=== PATIENT | male | born 1940 | race Caucasian/White ===

== ENCOUNTER 2021-10-16 12:37 | Outpatient (RCR) | payer MEDICARE, SELFPAY | END 2021-11-13 10:45 | disposition home or self-care (01) | LOC: HO.WCC 12:37 | PROVIDERS: PCP Internal Medicine; Visit Provider Physician Assistant | DX: E11.622 Type 2 diabetes mellitus with other skin ulcer (principal); I87.311 Chronic venous hypertension (idiopathic) with ulcer of right lower extremity; L97.212 Non-pressure chronic ulcer of right calf with fat layer exposed; I87.302 Chronic venous hypertension (idiopathic) without complications of left lower extremity; E11.40 Type 2 diabetes mellitus with diabetic neuropathy, unspecified; Z87.891 Personal history of nicotine dependence | CPT/HCPCS: 11042; 11045; 99212 ==

== ENCOUNTER 2022-03-05 12:34 | Outpatient (RCR) | payer MEDICARE, SELFPAY | END 2022-03-18 14:06 | disposition home or self-care (01) | LOC: HO.WCC 12:34 | PROVIDERS: Visit Provider Physician Assistant | DX: Z09 Encounter for follow-up examination after completed treatment for conditions other than malignant neoplasm (principal); L30.9 Dermatitis, unspecified; R60.0 Localized edema; I87.2 Venous insufficiency (chronic) (peripheral); E11.40 Type 2 diabetes mellitus with diabetic neuropathy, unspecified; I10 Essential (primary) hypertension; I25.2 Old myocardial infarction; Z87.891 Personal history of nicotine dependence; Z87.2 Personal history of diseases of the skin and subcutaneous tissue | CPT/HCPCS: 99213 ==

== ENCOUNTER 2024-06-12 10:00 | Outpatient (RCR) | payer MEDICARE, SELFPAY ==
--- NOTE | ~2024-06-12 | XR_ITS ---
EXAMINATION: XR FOOT, LEFT CLINICAL INFORMATION: Second toe medial joint [wound medially COMPARISON: None available. TECHNIQUE: AP, lateral, and oblique views of the left foot. FINDINGS: There is soft tissue swelling in the second toe more prominent at the middle phalanx and proximal phalanx with small osseous fragment seen medially, adjacent to the distal metadiaphysis of proximal phalanx. There is hallux valgus deformity. There is pes planus deformity and calcaneal spurring. There is soft tissue swelling seen dorsally. XR/XR foot LT min 3V IMPRESSION: Soft tissue swelling is small osseous fragment seen at the distal metadiaphysis of second proximal phalanx. Correlate clinically. Electronically signed by: Jewel Gaines MD 04/05/2024 04:18 PM EST [facility]
== END 2024-07-16 13:51 | disposition home or self-care (01) ==
LOC: HO.WCC 10:00
PROVIDERS: PCP Internal Medicine; Visit Provider Surgery
DX: E11.621 Type 2 diabetes mellitus with foot ulcer (principal); L97.522 Non-pressure chronic ulcer of other part of left foot with fat layer exposed
CPT/HCPCS: 11042; 73630; 99212

== ENCOUNTER 2024-12-31 15:06 | Outpatient (AMB) | payer MEDICARE, SELFPAY ==
--- NOTE | 2024-12-31 15:24 | AM.OFFWIN_ITS ---
Intake Vital Signs 3 12/31/24 15:25 Height 5 ft 6 in Weight 185 lb BMI 29.9 BP 108/56 L Blood Pressure Location Lt brachial Position Sitting Pulse 58 Pulse Source Pulse Oximeter Temp 98.3 F Temp Source Oral Pulse Oximetry (%) 96 Oxygen Delivery Method Room Air Intake Visit Reasons: EP bite Intake Note: presents with open wound on right arm from a dog bite sustained yesterday Allergies acetaminophen (From Tylenol-Codeine) Allergy (Mild, Verified 12/31/24 15:29) Hives codeine (From Tylenol-Codeine) Allergy (Mild, Verified 12/31/24 15:29) Hives Do you need a note to return to daycare/school/sports/work: No HPI HPI Comments 2 History of Present Illness0 Details 84 y/o Male patient who presents to the walk in clinic with c/o Dog Bite right Forearm. He was playing with his Dog yesterday when the Dog Bit him - he reached over to take the Dog's Toy. The Dog Belongs to him and fully vaccinated. Pt needs Tdap. [facility] Medical History (Updated 12/31/24 @ 16:27 by Earline Almaraz NP) Dog bite of arm Review of Systems Const All systems reviewed & are unremarkable except as noted in HPI and below Physical Exam Vital Signs: Last Vital Signs Temp 98.3 F 12/31/24 15:25 Pulse 58 12/31/24 15:25 BP 108/56 L 12/31/24 15:25 Pulse Ox 96 12/31/24 15:25 Oxygen Delivery Method Room Air 12/31/24 15:25 BMI result Body Mass Index 29.9 Const General: no acute distress Nutritional Appearance: well nourished Orientation/consciousness: patient oriented x3 Resp Effort & Inspection: normal respiratory effort Cardio Heart sounds: S1 normal heart sound present and S2 normal heart sound present Neuro General: patient oriented x3, gait normal and moves all extremities Extrem Right upper extremity: elbow/forearm Details: tenderness Location: proximal forearm, normal ROM and laceration; no swelling, no unusual warmth and no crepitus Elbow/forearm/wrist images: 2 1. Small superficial Skin Tear, not bleeding. Small visible bite joel. Psych Speech and movement: Normal speech and movement present Assessment & Plan Assessment & Plan (1) Dog bite of arm: Code(s): S41.159A - Open bite of unspecified upper arm, initial encounter; W54.0XXA - Bitten by dog, initial encounter Qualifiers: Encounter type: initial encounter Laterality: right Qualified Code(s): S41.151A - Open bite of right upper arm, initial encounter; W54.0XXA - Bitten by dog, initial encounter Plan: We currently do not Have T-dap in office. Advised Patient to go to [facility] or [facility] for the Vaccine. Clean the wound and applied dressings. Xeroform gauze and Wrapped with Kerlix roll. Ordered Augementin for 7 days. Medications: New 2 amoxicillin-pot clavulanate 875-125 mg 1 tab PO BID 14 tabs 0RF 7 days S41.151A - Open bite of right upper arm, initial encounter, W54.0XXA - Bitten by dog, initial encounter Coding Level of Care Code Est Pt Level 4 (12032) Diagnoses Dog bite of right upper extremity, initial encounter S41.151A; W54.0XXA Encounter type: initial encounter Laterality: right Time Spent (min) 20
[2024-12-31 15:25] VITALS: BP 108/56; PULSE 58; TEMP 36.8; O2SAT 96; BMI 29.9
--- OUTSIDE RECORDS SUMMARY | 2024-12-31 15:25 | XMS_ITS | Encounter Summary ---
Author Organization [facility] Address [address] [place] [address] Phone Care Team Providers Care Manager Database Name Role Phone Omar Encarnacion MD Primary Care Provider [phone] Reason for Referral * MRI/CAT Scan - Closed Specialty Diagnoses / Procedures Referred By Contac t Referred To Contact Radiology Diagnoses Low back pain, unspecified back pain laterality, unspecified chronicity, unspecified whether sciatica present Procedures MRI Lumbar Spine Rohan Liriano DO Phone: tel: fax: [email or web address] Referral ID Status Reason Start Date Expiration Date Visits Re quested Visits Authorized [id number] Closed 02/25/2021 02/25/2022 1 1 Encounter Details Date Type Department Care Team (Latest Contact Info) Description 02/25/2021 Transcribe Orders Virtual Department [address] [place] [address] Rohan Liriano DO [address] [place] [address] [email or web address] Low back pain, unspecified back pain laterality, unspecified chronicity, unspecified whether sciatica present (Primary Dx) Social History Tobacco Use Types Packs/Day Years Used Date Smoking Tobacco: Former Cigarettes Q uit: 08/15/1982 Smokeless Tobacco: Never Sex and Gender Information Value Date Recorded Sex Assigned at Not on file Legal Sex Male 10:38 PM EDT Gender Identity Not on file Sexual Orientation Not on file documented as of this encounter Plan of Treatment Upcoming Encounters Date Type Department Care Team (Late st Contact Info) Description 03/01/2025 1:40 PM EDT Office Visit [facility] [address] [place] [address] [address] Floor, [address] [place] [address] Ad Harvey MD [address] [facility], [address] [place] [address] [email or web address] documented as of this encounter Results * MRI LUMBAR SPINE (BONE) WITH AND WITHOUT CONTRAST (03/14/2021 3:31 PM EDT) Anatomical Region Laterality Modality L-spine Magnetic Resonan ce 03/15/2021 1:18 PM EDT Impressions 03/15/2021 4:07 PM EDT 1.Severe degenerative changes as described above and summarized below. 2.At L2/L3, there is moderate central canal stenosis and moderate narrowing of the bilateral lateral recesses with encroachment upon the descending L3 nerve roots. 3.At L3/L4, there is severe central canal stenosis and moderate to severe right lateral recess stenosis with possible impingement of the descending right L4 nerve roots, encroachment upon the left L4 nerve roots, and moderate left neural foraminal stenosis. 4.At L4/L5, there is moderate to severe central canal stenosis and severe right lateral recess stenosis with impingement of the descending right L5 nerve roots. 5.At L5/S1, there is a left paracentral disc herniation resulting in severe narrowing of the left lateral recess with impingement of the descending left S1 nerve roots. Narrative 03/15/2021 4:07 PM EDT MRI LUMBAR SPINE (BONE) WITH AND WITHOUT CONTRAST TECHNIQUE: Multi-sequence, multi-planar MRI of the lumbar spine was performed without and with intravenous contrast. COMPARISON: None FINDINGS: Vertebrae: There is mild accentuation of normal lumbar lordosis. There is mild anterolisthesis of L4 on L5 and mild stepwise retrolisthesis of L3 on L4 and L2 on L3. There is no evidence of vertebral body height loss to suggest a compression fracture. There is moderate to severe loss of intervertebral disc height at L2/L3 and L3/L4 levels. At these levels, there is STIR hyperintensity in the adjacent endplates likely representing bone marrow edema. Otherwise, there is no evidence of a marrow replacing process, a lytic lesion, or a blastic lesion. Conus: The conus terminates at the L1/L2 level and is unremarkable. Contrast: No abnormal enhancement. Soft Tissue: No paraspinal edema, mass or fluid collection. Findings by level: T12-L1: Normal. Normal disc height and contour. Normal facet joints. No listhesis. No bone marrow edema. No stenosis or nerve impingement. L1-L2: Normal. Normal disc height and contour. Normal facet joints. No listhesis. No bone marrow edema. No stenosis or nerve impingement. L2-L3: There is a broad-based posterior disc bulge with a superimposed central protrusion. There is associated epidural lipomatosis and ligamentum flavum hypertrophy. These changes are resulting in moderate central canal stenosis and crowding of the nerve roots of the cauda equina centrally. There is no significant neural foraminal stenosis. There is moderate narrowing of the lateral recesses bilaterally with encroachment upon the descending L3 nerve roots. L3-L4: There is a broad-based disc bulge with a superimposed central and right paracentral disc protrusion. There is bilateral ligamentum flavum hypertrophy, facet arthropathy, and epidural lipomatosis posteriorly. These changes are resulting in severe central canal stenosis and moderate to severe right lateral recess stenosis with possible impingement of the descending right L4 nerve roots. Encroachment on the descending left L4 nerve roots in the lateral recess is also noted. There is mild right and moderate left neural foraminal stenosis. L4-L5: There is posterior disc bulge with a superimposed broad-based central protrusion, epidural lipomatosis, and bilateral ligamentum flavum hypertrophy. These changes are resulting in moderate to severe central canal stenosis and severe right lateral recess stenosis with possible impingement of the descending right L5 nerve roots. There is encroachment upon the descending left L4 nerve roots as well. There is mild bilateral neural foraminal stenosis. There are moderate to severe degenerative changes involving the facet joints bilaterally. L5-S1: There is a broad-based disc bulge with a superimposed central and left paracentral disc herniation. There is bilateral ligamentum flavum hypertrophy and facet arthropathy. These changes are resulting in mild narrowing of the central canal and severe narrowing of the left lateral recess with impingement of the descending left S1 nerve roots. There is encroachment on the right S1 nerve roots in the lateral recess as well. Bilateral neural foramen are patent. Procedure Note Oumar Pickett MD, PhD - 03/15/2021 MRI LUMBAR SPINE (BONE) WITH AND WITHOUT CONTRAST TECHNIQUE: Multi-sequence, multi-planar MRI of the lumbar spine wasperformed without and with intravenous contrast. COMPARISON: None FINDINGS: Vertebrae: There is mild accentuation of normal lumbar lordosis. There ismild anterolisthesis of L4 on L5 and mild stepwise retrolisthesis of L3 onL4 and L2 on L3. There is no evidence of vertebral body height loss tosuggest a compression fracture. There is moderate to severe loss of intervertebral disc height at L2/L3and L3/L4 levels. At these levels, there is STIR hyperintensity in theadjacent endplates likely representing bone marrow edema. Otherwise, thereis no evidence of a marrow replacing process, a lytic lesion, or a blasticlesion. Conus: The conus terminates at the L1/L2 level and is unremarkable. Contrast: No abnormal enhancement. Soft Tissue: No paraspinal edema, mass or fluid collection. Findings by level: T12-L1: Normal. Normal disc height and contour. Normal facet joints. Nolisthesis. No bone marrow edema. No stenosis or nerve impingement. L1-L2: Normal. Normal disc height and contour. Normal facet joints. Nolisthesis. No bone marrow edema. No stenosis or nerve impingement. L2-L3: There is a broad-based posterior disc bulge with a superimposedcentral protrusion. There is associated epidural lipomatosis andligamentum flavum hypertrophy. These changes are resulting in moderatecentral canal stenosis and crowding of the nerve roots of the cauda equinacentrally. There is no significant neural foraminal stenosis. There ismoderate narrowing of the lateral recesses bilaterally with encroachmentupon the descending L3 nerve roots. L3-L4: There is a broad-based disc bulge with a superimposed central andright paracentral disc protrusion. There is bilateral ligamentum flavumhypertrophy, facet arthropathy, and epidural lipomatosis posteriorly.These changes are resulting in severe central canal stenosis and moderateto severe right lateral recess stenosis with possible impingement of thedescending right L4 nerve roots. Encroachment on the descending left F9oamll roots in the lateral recess is also noted. There is mild right andmoderate left neural foraminal stenosis. L4-L5: There is posterior disc bulge with a superimposed broad-basedcentral protrusion, epidural lipomatosis, and bilateral ligamentum flavumhypertrophy. These changes are resulting in moderate to severe centralcanal stenosis and severe right lateral recess stenosis with possibleimpingement of the descending right L5 nerve roots. There is encroachmentupon the descending left L4 nerve roots as well. There is mild bilateralneural foraminal stenosis. There are moderate to severe degenerativechanges involving the facet joints bilaterally. L5-S1: There is a broad-based disc bulge with a superimposed central andleft paracentral disc herniation. There is bilateral ligamentum flavumhypertrophy and facet arthropathy. These changes are resulting in mildnarrowing of the central canal and severe narrowing of the left lateralrecess with impingement of the descending left S1 nerve roots. There isencroachment on the right S1 nerve roots in the lateral recess as well.Bilateral neural foramen are patent. IMPRESSION: 1.Severe degenerative changes as described above and summarized below. 2.At L2/L3, there is moderate central canal stenosis and moderatenarrowing of the bilateral lateral recesses with encroachment upon thedescending L3 nerve roots. 3.At L3/L4, there is severe central canal stenosis and moderate to severeright lateral recess stenosis with possible impingement of the descendingright L4 nerve roots, encroachment upon the left L4 nerve roots, andmoderate left neural foraminal stenosis. 4.At L4/L5, there is moderate to severe central canal stenosis and severeright lateral recess stenosis with impingement of the descending right H7slexi roots. 5.At L5/S1, there is a left paracentral disc herniation resulting insevere narrowing of the left lateral recess with impingement of thedescending left S1 nerve roots. us Rohan Liriano DO IMG MR XSPECIALTY Final Resu lt documented in this encounter Visit Diagnoses Diagnosis Low back pain, unspecified back pain laterality, unspecified chronicity, unspecified whether sciatica present- Primary Low back pain, unspecified back pain laterality, unspecified chronicity, unspecified whether sciatica present documented in this encounter Care Teams Manager Database Relationship Specialty Start Date End Date Omar Encarnacion MD [address] [place] [id number] PCP - General 03/10/17 documented as of this encounter Additional Source Comments The information contained in this document represents components of the legal health record. It is not the complete legal health record.[facility]
--- OUTSIDE RECORDS SUMMARY | 2024-12-31 15:25 | XMS_ITS | Patient Health Record ---
Author Organization [facility] Address [address] [place] [address] Care Team Providers Care [employer] Math Teacher Name Role Phone Omar Encarnacion MD Primary Care Provider Augustin Dennison [phone] Allergies Allergen (clinical drug ingredient) Drug/Non Drug Allergy documented on EMR Reaction Allergy Type Onset Date Status Tylenol/Codeine #3 Unknown Drug Allergy Active Reason For Referral No Information Medications Medication SIG (Take, Route, Frequency, Duration) Notes Start Date End Date Status amLODIPine Besylate 10 MG 1 tablet Orall y Once a day Active Clopidogrel Bisulfate 75 MG 1 tablet Ora lly Once a day Active Diovan HCT 320-25 MG 1 tablet Orally Onc e a day Active Levothyroxine Sodium 125 MCG 1 tablet Or ally Once a day Active Carvedilol 12.5 MG 1 Orally qd Active Finasteride 5 MG 1 tablet Orally Once a day Active Aspir-81 81 MG 1 tablet Orally Once a day Active Tamsulosin HCl 0.4 MG 1 capsule 30 minut es after the same meal each day Orally Once a day Active metFORMIN HCl 1000 MG 1 tablet with meal s Orally Once a day Active Gabapentin 600 MG 1 tablet Orally once a day Active Atorvastatin Calcium 80 MG 1 tablet Oral ly Once a day Active Protonix 40 MG 1 tablet Orally Once a day Active Immunizations Vaccine Route Administration Date Status Comme nts Flu vaccine no Preserv 3 and > Unknown 02/04/2015 Admin istered Problems Problem Type SNOMED Code ICD Code Onset Dates Problem Status W/U Status Risk Notes Problem 789015053 Encounter for screening for malignant neoplasm of colon (Z12.11) Active confirmed Problem 232904508 History of adenomatous polyp of colon (Z86.010) Active confirmed Problem Encounter for screening for malignant neoplasm of rectum (Z12.12) Active confirmed Problem 970842176 Gastroesophageal reflux disease without esophagitis (K21.9) Active confirmed Problem 421825997 Family history o f colon cancer (Z80.0) Active confirmed Plan Of Treatment Pending Test Test Name Order Date GI BIOPSY 06/03/2016 Future Test Test Name Order Date COLONOSCOPY 09/24/2015 Insurance Providers Payer Name Payer Address Payer Phone Subscriber Number Group Number Insured Name Patient Relationship to Insured Coverage Start Date Coverage End Date MEDICARE OF [place] [address] RAFAEL HOWARDLUISDIONISIO [id number] KESHA MARTINEZ Self - patient is the insured [facility] [employer] [address] [place] [address] [id number] KESHA MARTINEZ Self - patient is the insured Medical (General) History Medical History History ICD Code Colonoscopy 1999, 2005, and 02/2011--tubular adenoma removed in 2005--the other exams were negative aside from some diverticulosis NIDDM HTN Denies CVA,Lung disease,renal disease [place] 09/30/2014---1 stent placed--Dr. Marin er GERD-EGD in 02/2011--small H H, no Trent's nor esophagitis, mild gastritis--no H.pylori Hyperlipidemia Hypothyroidism Neuropathy BPH Surgical History Surgery Date(Month/Year) Back surgery Cyst removal--back and ear Tonsillectomy
--- OUTSIDE RECORDS SUMMARY | 2024-12-31 15:25 | XMS_ITS | Clinical Summary ---
Author Organization [address] [facility] Address [address] [place] [address] Phone Care Team Providers Care Motor Polarizer Name Role Phone Omar Encarnacion MD Primary Care Provider [phone] Social History Tobacco Use Types Packs/Day Years Used Date Smoking Tobacco: Never Assessed Sex and Gender Information Value Date Recorded Sex Assigned at Not on file Legal Sex Male 6:54 PM EST Gender Identity Not on file Sexual Orientation Not on file Plan of Treatment Health Maintenance Due Date Last Done Comments DTaP,Tdap,and Td Vaccines (1 - Tdap) 1959 Pneumococcal Vaccine: 50+ Ye ars (1 of 1 - PCV) 09/08/1991 Zoster Vaccines (1 of 2) 09/08/1991 RSV Immunization Adult Patie nts (1 - 1-dose 75+ series) 2016 COVID-19 Vaccine (2023-2 5 season) 2024 Depression Screening 05/23/2024 Cholesterol Screening (Lipid Panel) 05/25/2024 Falls Risk Assessment 05/25/2024 Medicare Annual Wellness Visit 05/25/2024 Social Influencers of Health Screening 05/25/2024 Influenza Vaccine (#1) 2025 HIB Vaccines Aged Out No longer eligi ble based on patient's age to complete this topic HPV Vaccines Aged Out No longer eligi ble based on patient's age to complete this topic Hepatitis A Vaccines Aged Out No long er eligible based on patient's age to complete this topic Hepatitis B Vaccines Aged Out No long er eligible based on patient's age to complete this topic IPV Vaccines Aged Out No longer eligi ble based on patient's age to complete this topic MMR Vaccines Aged Out No longer eligi ble based on patient's age to complete this topic Meningococcal ACWY Vaccine Aged Out N o longer eligible based on patient's age to complete this topic Meningococcal B Vaccine Aged Out No l onger eligible based on patient's age to complete this topic RSV Immunization Patients Un marley 20 months Aged Out No longer eligible b ased on patient's age to complete this topic Varicella Vaccines Aged Out No longer eligible based on patient's age to complete this topic Insurance * Guarantor: [employer] Account Type Relation to Patient Date of Phone Billing Address Personal/Family Self 1940 [address] [facility] [place] [address] MEDICARE [facility] Care Teams Motor Polarizer Relationship Specialty Start Date End Date Omar Encarnacion MD [address] [place] [phone] PCP - General Internal Medicine 05/24/24
--- OUTSIDE RECORDS SUMMARY | 2024-12-31 15:26 | XMS_ITS | Patient Health Record ---
Author Organization [facility] Address [address] [place] [address] Care Team Providers Care First Sampler Name Role Phone Alysha DU, Omar Primary Care Provider Loren Garcia Unavailable [phone] Zahira Liu Unavailable [phone] Allergies Allergen (clinical drug ingredient) Drug/Non Drug Allergy documented on EMR Reaction Allergy Type Onset Date Status Tylenol with Codeine #3 Unknown Drug Allergy Active Results Component Value Reference Range Notes X ray : Foot, left 3V Reviewed date:05/10/2024 07:08:38 PM Interpretation:See Examination above Performing Lab: Notes/Report: See Examination above X ray : Foot, left 3V Reviewed date:05/24/2024 07:59:37 PM Interpretation:See Examination above Performing Lab: Notes/Report: See Examination above HEMOGLOBIN A1C (GLYCOHEMOGLO BIN) Reviewed date:02/02/2024 10:44:17 AM Interpretation: Performing Lab: Notes/Report: HEMOGLOBIN A1C % (HH) 7.4 HEMOGLOBIN A1C (GLYCOHEMOGLO BIN) Reviewed date:09/20/2024 08:21:41 AM Interpretation: Performing Lab: Notes/Report: HEMOGLOBIN A1C % (HH) 7.4 HEMOGLOBIN A1C (GLYCOHEMOGLO BIN) Reviewed date:11/01/2024 09:13:53 AM Interpretation: Performing Lab: Notes/Report: HEMOGLOBIN A1C % (HH) 7.4 Reason For Referral No Information Medications Medication SIG (Take, Route, Frequency, Duration) Notes Start Date End Date Status Diovan 160 MG 1 tablet Orally Once a day; Duration: 30 day(s) Not-Taking Losartan Potassium-HCTZ Active Levothyroxine Sodium 125 MCG 1 tablet every morning on an empty stomach Orally Once a day; Duration: 30 day(s) Active Lipitor 80 MG 1 tablet Orally Once a day Active Toprol XL 100 MG 1 tablet Orally Once a day; Duration: 30 day(s) Not-Taking Norvasc Not-Taking Doxycycline Monohydrate 100 MG 1 capsule Orally Once a day; Duration: 10 days 01/09/2024 Not-Taking Effient Not-Taking Vitamin B Complex Orally No t-Taking Brimonidine Tartrate Not-Taking Cephalexin 500 MG 1 capsule Orally every 12 hrs; Duration: 7 days Not-Taking Ciclopirox Olamine 0.77 % 1 application to affected area Externally Twice a day to effected areas on feet; Duration: 30 days 12/15/2023 Not-Taking Flomax 0.4 MG 1 capsule 30 minutes after the same meal each day Orally Once a day; Duration: 30 day(s) Active hydroCHLOROthiazide 25 MG 1 tablet in morning Orally Once a day; Duration: 30 day(s) Active Gabapentin 600 MG 1 tablet Orally Thre e times a day; Duration: 30 day(s) Active Carvedilol 25 MG 1 tablet with food Orally Active amLODIPine Besylate Not-Taking Extra Depth Orthopedic Shoes (1 Pair) with Customized Heat Molded Multidensity Innersoles (3 Pair) as directed Dx: NIDDM/Polyneuropathy (E11.42), Hammertoe Foot Deformity (M20.41,M20.42), Preulcerative Skin Lesion(s) (L85.1 08/25/2023 Not-Taking Extra Depth Orthopedic Shoes (1 Pair) with Customized Heat Molded Multidensity Innersoles (3 Pair) as directed Dx: NIDDM/Polyneuropathy (E11.42), Hammertoe Foot Deformity (M20.41,M20.42), Preulcerative Skin Lesion(s) (L85.1 06/14/2024 Active Finasteride 5 MG 1 tablet Orally Once a day; Duration: 30 day(s) Active Work Note . . . 05/24/2024 Not-Dayday ing Aspirin 81 MG 1 tablet Orally Once a day; Duration: 30 day(s) Active Latanoprost 0.005 % 1 drop into affected eye in the evening Ophthalmic Once a day Active Dorzolamide HCl 2 % 1 drop into affected eye Ophthalmic Three times a day Active Ciclopirox Olamine 0.77 % 1 application Externally Twice a day; Duration: 30 days Active zzzCompression Stockings 20-30mm Hg . . .; Duration: . Active Protonix 40 MG 1 tablet Orally Once a day; Duration: 30 day(s) Active metFORMIN HCl 500 MG 1 tablet with meals Orally Twice a day Active Bactroban 2 % 1 application to affected area Externally Three times a day; Duration: 30 days 05/24/2024 Not-Taking levoFLOXacin 750 MG 1 tablet Orally Once a day; Duration: 10 days 05/24/2024 Not-Taking Betadine PRN 12/26/2023 Active Immunizations Vaccine Route Administration Date Status Comme nts Influenza Unknown 02/18/2016 Administered Influenza Unknown 02/21/2017 Administered Influenza Unknown 03/20/2018 Administered Influenza Unknown 03/23/2019 Administered Influenza Unknown 02/21/2020 Administered Influenza Unknown 03/23/2021 Administered Influenza Unknown 08/25/2023 Refused COVID-19 Pfizer BioNTech Vaccine Unknown 03/09/2021 Administered First Dose:06/25/2020 Second Dose: 07/18/2020 Social History Tobacco Use: Social History Observation Description Date Details (start date - stop date) Never Smoker NA - NA Tobacco use other than smoking: Question Answer Notes Are you an other tobacco user? No Tobacco Control (Standard) Question Answer Notes Tobacco use: Nonsmoker Additional Findings: Tobacco non-user Current no nsmoker AUDIT-C (Standard) Question Answer Notes Did you have a drink containing alcohol in the p ast year? No Points 0 Interpretation Negative Problems Problem Type SNOMED Code ICD Code Onset Dates Problem Status W/U Status Risk Notes Problem Acquired hammer toe of right foot (505544448531141 5) Other hammer toe(s) (acquired), right foot (M20.41) Active confirmed Response to treatment, Improvement Problem Acquired hammer toe of left foot (743707766164131 3) Other hammer toe(s) (acquired), left foot (M20.42) Active confirmed Response to treatment, Improvement Problem Polyneuropathy due to type 2 diabetes mellitus (300735049) Type 2 diabetes mellitus with diabetic polyneuropathy (E11.42) Active confirmed Vital Signs Heart Rate 63 /min 11/01/2024 Blood pressure diastolic 60 mm Hg 12/24/2024 Height 5 ft 6.5 in in 12/24/2024 Blood pressure systolic 124 mm Hg 12/24/2024 Weight 180 lbs 12/24/2024 BMI 28.61 kg/m2 12/24/2024 Procedures Procedure Date Ordered Date Performed Result Body Sit e 21433- Debride <25 sq cm 01/09/2024 N/A 99526- Debride <25 sq cm 02/02/2024 N/A 63630-ERPYVAW NAIL, 6 OR MORE 02/23/2024 N/A 46303-VTLFZPD SKIN/TISSUE 02/23/2024 N/A 29065-NJDW SKIN LESIONS, OVER 4 02/23/2024 N/A 01254-LZKLKRO SKIN/TISSUE 03/12/2024 N/A 65250 I&D ABSCESS- SIMPLE,SINGLE 05/24/2024 N/A 08783-XSBOAJP SKIN/TISSUE 05/31/2024 N/A 72059-QUVOJVW NAIL, 6 OR MORE 06/14/2024 N/A 62214-BMPN SKIN LESIONS, OVER 4 06/14/2024 N/A 65395-LQTUJAI NAIL, 6 OR MORE 09/20/2024 N/A 87163-VKXO SKIN LESIONS, OVER 4 09/20/2024 N/A 71074, C9760-CKLOU/INJECT, JOINT/BURSA 11/01/2024 N/A 19485-ZFUBQXV NAIL, 6 OR MORE 12/24/2024 N/A 87937-Whcdtuwd Plate 12/24/2024 N/A 13195-ZIFN SKIN LESIONS, OVER 4 12/24/2024 N/A Encounters Encounter Location Date Provider Diagnosis [facility] [place] ([facility]) [address] [place] [address] 08/29/2024 Zahira Liu [facility] [address] [address] 01/02/2024 Loren Black Type 2 diabetes mellitus with diabetic polyneuropathy E11.42 and Skin ulcer of toe of left foot with fat layer exposed L97.522 [facility] [address] [address] 01/09/2024 Loren Black Type 2 diabetes mellitus with diabetic polyneuropathy E11.42 ; Neuropathic ulcer of left foot, 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.521 and Cellulitis of left toe L03.[address] [address] 01/16/2024 Loren Black Type 2 diabetes mellitus with diabetic polyneuropathy E11.42 ; Neuropathic ulcer of left foot, 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.521 and Cellulitis of left toe L03.[address] [address] 02/02/2024 Loren Black Type 2 diabetes mellitus with diabetic polyneuropathy E11.42 and Neuropathic ulcer of left foot, 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.[address] [address] 02/23/2024 Loren Black Type 2 diabetes mellitus with diabetic polyneuropathy E11.42 ; Tinea unguium B35.1 and Skin ulcer of toe of left foot with fat layer exposed L97.[address] [address] 03/12/2024 Lorne Black Type 2 diabetes mellitus with diabetic polyneuropathy E11.42 and Skin ulcer of toe of left foot with fat layer exposed L97.[address] [address] 05/10/2024 Loren Black Type 2 diabetes mellitus with diabetic polyneuropathy E11.42 ; Skin ulcer of toe of left foot with fat layer exposed L97.522 ; Other hammer toe(s) (acquired), left foot M20.42 and Hallux valgus of left foot M20.[address] [address] 05/24/2024 Loren Black Cellulitis of foot, left L03.116 ; Abscess of left foot L02.612 ; 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 ; Type 2 diabetes mellitus with diabetic polyneuropathy E11.42 and Skin ulcer of toe of left foot with necrosis of bone L97.[address] [address] 05/31/2024 Loren Black Cellulitis of foot, left L03.116 ; Type 2 diabetes mellitus with diabetic polyneuropathy E11.42 and Skin ulcer of toe of left foot with fat layer exposed L97.[address] [address] 06/06/2024 Zahira Liu Type 2 diabetes mellitus with diabetic polyneuropathy E11.42 ; Hammertoe of left foot M20.42 and Skin ulcer of toe of left foot with fat layer exposed L97.[address] [address] 06/14/2024 Loren Black Other hammer toe(s) (acquired), right foot M20.41 ; Other hammer toe(s) (acquired), left foot M20.42 ; Tinea unguium B35.1 ; Type 2 diabetes mellitus with diabetic polyneuropathy E11.42 and Neuropathic ulcer of left foot, 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.[address] [address] 07/30/2024 Loren Black Type 2 diabetes mellitus with diabetic polyneuropathy E11.42 and Skin ulcer of toe of left foot with fat layer exposed L97.[address] [address] 08/27/2024 Zahira Liu Type 2 diabetes mellitus with diabetic polyneuropathy E11.42 ; Hammertoe of left foot M20.42 and Skin ulcer of toe of left foot with fat layer exposed L97.[address] [address] 09/03/2024 Zahira Liu Type 2 diabetes mellitus with diabetic polyneuropathy E11.42 ; Hammertoe of left foot M20.42 and Post-operative state Z98.[address] [address] 09/10/2024 Zahira Liu Type 2 diabetes mellitus with diabetic polyneuropathy E11.42 ; Hammertoe of left foot M20.42 and Post-operative state Z98.890 [facility] [address] [address] 09/20/2024 Loren Black Type 2 diabetes mellitus with diabetic polyneuropathy E11.42 and Tinea unguium B35.1 [facility] [address] [address] 09/24/2024 Zahira Liu Type 2 diabetes mellitus with diabetic polyneuropathy E11.42 ; Hammertoe of left foot M20.42 and Post-operative state Z98.890 [facility] [address] [place] [address] 11/01/2024 Zahira Liu Bursitis of left foot 726.79 [facility] [address] [address] 12/24/2024 Loren Black Type 2 diabetes mellitus with diabetic polyneuropathy E11.42 ; Tinea unguium B35.1 ; Ingrown nail L60.0 ; Other hammer toe(s) (acquired), right foot M20.41 and Other hammer toe(s) (acquired), left foot M20.42 [facility] [address] [place] [address] 01/02/2024 Loren Black [facility] [address] [place] [address] 01/16/2024 Loren Black [facility] [address] [place] [address] 01/16/2024 Loren Black [facility] [address] [place] [address] 03/12/2024 Loren Black [facility] [address] [place] [address] 03/29/2024 Loren Black [facility] [address] [place] [address] 05/10/2024 Loren Black [facility] [address] [place] [address] 05/24/2024 Loren Black [facility] [address] [place] [address] 05/24/2024 Loren Black [facility] [place] [address] [place] [address] 05/28/2024 Loren Black [facility] [address] [place] [address] 05/31/2024 Loren Black [facility] [place] [address] [place] [address] 05/31/2024 Loren Black [facility] [address] [place] [address] 05/31/2024 Loren Black [facility] [address] [place] [address] 06/14/2024 [facility] [address] [place] [address] 07/03/2024 Loren Black [facility] [address] [place] [address] 07/05/2024 Loren Black [facility] [address] [place] [address] 08/30/2024 Loren Black [facility] [address] [place] [address] 09/19/2024 Loren Black [facility] [address] [place] [address] 09/26/2024 Loren Black [facility] [address] [place] [address] 10/29/2024 Loren Black Assessments Encounter Date Diagnosis (ICD Code) Assessment Notes Treatment Notes Treatment Clinical Notes Section Notes 01/02/2024 Type 2 diabetes mellitus with diabetic polyneuropathy (ICD-10 - E11.42) 01/09/2024 Type 2 diabetes mellitus with diabetic polyneuropathy (ICD-10 - E11.42) 01/09/2024 Neuropathic ulcer of left foot, limited to breakdown of skin (ICD-10 - L97.521) Response to treatment - Improvement 02/02/2024 Type 2 diabetes mellitus with diabetic polyneuropathy (ICD-10 - E11.42) 02/02/2024 Neuropathic ulcer of left foot, limited to breakdown of skin (ICD-10 - L97.521) Response to treatment - Unresolved 02/23/2024 Tinea unguium (ICD-10 - B35.1) 02/23/2024 Type 2 diabetes mellitus with diabetic polyneuropathy (ICD-10 - E11.42) 01/16/2024 Type 2 diabetes mellitus with diabetic polyneuropathy (ICD-10 - E11.42) 03/12/2024 Type 2 diabetes mellitus with diabetic polyneuropathy (ICD-10 - E11.42) 03/12/2024 Skin ulcer of toe of left foot with fat layer exposed (ICD-10 - L97.522) Worse 05/10/2024 Type 2 diabetes mellitus with diabetic polyneuropathy (ICD-10 - E11.42) 05/24/2024 Abscess of left foot (ICD-10 - L02.612) Patient Educated with: WOUND CARE INSTRUCTIONS. pdf (WOUND CARE INSTRUCTIONS. pdf) 05/24/2024 Cellulitis of foot, left (ICD-10 - L03.116) 05/31/2024 Type 2 diabetes mellitus with diabetic polyneuropathy (ICD-10 - E11.42) 05/31/2024 Cellulitis of foot, left (ICD-10 - L03.116) 06/06/2024 Type 2 diabetes mellitus with diabetic polyneuropathy (ICD-10 - E11.42) 06/06/2024 Hammertoe of left foot (ICD-10 - M20.42) 06/14/2024 Other hammer toe(s) (acquired), right foot (ICD-10 - M20.41) Patient Educated with: DIABETIC FOOT CARE INSTRUCTIONS. pdf (DIABETIC FOOT CARE INSTRUCTIONS. pdf) 06/14/2024 Other hammer toe(s) (acquired), left foot (ICD-10 - M20.42) 07/30/2024 Type 2 diabetes mellitus with diabetic polyneuropathy (ICD-10 - E11.42) 07/30/2024 Skin ulcer of toe of left foot with fat layer exposed (ICD-10 - L97.522) 08/27/2024 Type 2 diabetes mellitus with diabetic polyneuropathy (ICD-10 - E11.42) 08/27/2024 Hammertoe of left foot (ICD-10 - M20.42) 09/03/2024 Type 2 diabetes mellitus with diabetic polyneuropathy (ICD-10 - E11.42) 09/03/2024 Hammertoe of left foot (ICD-10 - M20.42) 09/10/2024 Type 2 diabetes mellitus with diabetic polyneuropathy (ICD-10 - E11.42) 09/20/2024 Type 2 diabetes mellitus with diabetic polyneuropathy (ICD-10 - E11.42) 09/20/2024 Tinea unguium (ICD-10 - B35.1) 09/24/2024 Type 2 diabetes mellitus with diabetic polyneuropathy (ICD-10 - E11.42) 11/01/2024 Bursitis of left foot (ICD9-CM - 726.79) Patient Educated with: RICE THERAPY.pdf (RICE THERAPY.pdf) Patient Educated with: INJECTIONTHER APY.pdf (INJECTIONTHE RAPY.pdf) 12/24/2024 Type 2 diabetes mellitus with diabetic polyneuropathy (ICD-10 - E11.42) 12/24/2024 Tinea unguium (ICD-10 - B35.1) 09/24/2024 Hammertoe of left foot (ICD-10 - M20.42) 09/10/2024 Hammertoe of left foot (ICD-10 - M20.42) 09/03/2024 Post-operative state (ICD-10 - Z98.890) 08/27/2024 Skin ulcer of toe of left foot with fat layer exposed (ICD-10 - L97.522) 06/14/2024 Tinea unguium (ICD-10 - B35.1) 06/06/2024 Skin ulcer of toe of left foot with fat layer exposed (ICD-10 - L97.522) 05/31/2024 Skin ulcer of toe of left foot with fat layer exposed (ICD-10 - L97.522) 05/24/2024 Toe osteomyelitis (ICD-10 - M86.9) 05/10/2024 Skin ulcer of toe of left foot with fat layer exposed (ICD-10 - L97.522) Resistant to previous conservative treatment 01/16/2024 Neuropathic ulcer of left foot, limited to breakdown of skin (ICD-10 - L97.521) Response to treatment - Improvement 02/23/2024 Skin ulcer of toe of left foot with fat layer exposed (ICD-10 - L97.522) Worse 01/16/2024 Cellulitis of left toe (ICD-10 - L03.032) Response to treatment - Improvement 01/02/2024 Skin ulcer of toe of left foot with fat layer exposed (ICD-10 - L97.522) 01/09/2024 Cellulitis of left toe (ICD-10 - L03.032) 05/10/2024 Other hammer toe(s) (acquired), left foot (ICD-10 - M20.42) 05/24/2024 Type 2 diabetes mellitus with diabetic polyneuropathy (ICD-10 - E11.42) 06/14/2024 Type 2 diabetes mellitus with diabetic polyneuropathy (ICD-10 - E11.42) 09/10/2024 Post-operative state (ICD-10 - Z98.890) 09/24/2024 Post-operative state (ICD-10 - Z98.890) 12/24/2024 Ingrown nail (ICD-10 - L60.0) 12/24/2024 Other hammer toe(s) (acquired), right foot (ICD-10 - M20.41) Response to treatment, Improvement 06/14/2024 Neuropathic ulcer of left foot, limited to breakdown of skin (ICD-10 - L97.521) Resolved 05/10/2024 Hallux valgus of left foot (ICD-10 - M20.12) 05/24/2024 Skin ulcer of toe of left foot with necrosis of bone (ICD-10 - L97.524) 12/24/2024 Other hammer toe(s) (acquired), left foot (ICD-10 - M20.42) Response to treatment, Improvement 05/24/2024 Other 05/31/2024 Other 06/06/2024 Other 08/27/2024 Other 11/01/2024 Other Plan Of Treatment Pending Test Test Name Order Date *Wound Culture 05/24/2024 X ray : Foot, left 3V 02/07/2012 X ray : Foot, left 3V 09/10/2024 X ray : Foot, right 3V 02/07/2012 43718-KOZXIFU NAIL, 6 OR MORE 09/09/2016 51374-YJEOTCO NAIL, 6 OR MORE 06/17/2014 49963-AWBUZNT NAIL, 6 OR MORE 06/16/2015 84757-LLUXJAW NAIL, 6 OR MORE 03/11/2016 65328-UFZBQPV NAIL, 6 OR MORE 03/10/2017 71154-LEYOBWQ NAIL, 6 OR MORE 06/09/2017 36752-WDLEJAG NAIL, 6 OR MORE 09/19/2017 65948-LWNIMFM NAIL, 6 OR MORE 03/20/2018 48346-AXCOIPQ NAIL, 6 OR MORE 11/30/2018 13445-YXHQCVF NAIL, 6 OR MORE 04/09/2019 06529-KTLBILN NAIL, 6 OR MORE 07/05/2019 12050-LBBXHEO NAIL, 6 OR MORE 10/04/2019 89828-OAAXOMZ NAIL, 6 OR MORE 01/03/2020 91503-SDGZFGV NAIL, 6 OR MORE 04/10/2020 57165-FHITXQG NAIL, 6 OR MORE 07/10/2020 31569-ZEAKSBZ NAIL, 6 OR MORE 10/09/2020 67908-VGSYBWN NAIL, 6 OR MORE 06/14/2024 94364-HFPRKPY NAIL, 6 OR MORE 12/15/2023 87021-TGNOJUD NAIL, 6 OR MORE 02/23/2024 79175-BTZHAKB NAIL, 6 OR MORE 05/26/2023 68498-GMBHTDV NAIL, 6 OR MORE 08/25/2023 87922-ZLKBKKA NAIL, 6 OR MORE 01/08/2021 97510-PJKHHLQ NAIL, 6 OR MORE 06/18/2021 80356-XXLMMKZ NAIL, 6 OR MORE 09/21/2021 65384-SUPKBFR NAIL, 6 OR MORE 01/18/2022 02500-RKETEWQ NAIL, 6 OR MORE 04/26/2022 43767-JONPXUU NAIL, 6 OR MORE 07/29/2022 37823-SGDJPCU NAIL, 6 OR MORE 10/28/2022 80457-JLMVZDK NAIL, 6 OR MORE 02/10/2023 08849-MTCYRGK NAIL, 6 OR MORE 09/20/2024 79197-QOWWFAX NAIL, 6 OR MORE 12/24/2024 50613-Khkyeycl Plate 12/24/2024 12884- Debride <25 sq cm 02/10/2023 18186- Debride <25 sq cm 06/30/2023 83531- Debride <25 sq cm 01/09/2024 43387- Debride <25 sq cm 02/02/2024 45440-SRFIYJB SKIN/TISSUE 02/23/2024 04431-ZGMALBO SKIN/TISSUE 12/15/2023 68766-YZAYDRO SKIN/TISSUE 03/12/2024 41403-SXPGYAL SKIN/TISSUE 12/26/2023 26479-YUQDSKZ SKIN/TISSUE 05/31/2024 76277 I&D ABSCESS- SIMPLE,SINGLE 025 , J0702- INJECT or DRAIN, JOINT/BUR SA 09/19/2017, J0702- INJECT or DRAIN, JOINT/BUR SA 07/14/2017 16220-IOXP SKIN LESIONS, OVER 4 09/20/19 18 22823-QUHT SKIN LESIONS, OVER 4 06/09/19 18 54534-TGUS SKIN LESIONS, OVER 4 03/20/20 18 86495-LWGM SKIN LESIONS, OVER 4 12/01/19 19 15895-JPEJ SKIN LESIONS, OVER 4 09/10/19 17 64938-NQQJ SKIN LESIONS, OVER 4 03/11/20 16 98858-SNSX SKIN LESIONS, OVER 4 01/09/20 21 39019-JPDE SKIN LESIONS, OVER 4 10/10/19 21 90900-HXKD SKIN LESIONS, OVER 4 07/10/19 21 06807-MJVR SKIN LESIONS, OVER 4 04/10/20 20 73918-NYWU SKIN LESIONS, OVER 4 01/03/20 20 42324-XVUY SKIN LESIONS, OVER 4 10/04/19 20 06474-GMCH SKIN LESIONS, OVER 4 07/05/19 20 13915-XNDO SKIN LESIONS, OVER 4 04/09/20 19 06194-EENJ SKIN LESIONS, OVER 4 06/14/19 25 27198-SDFI SKIN LESIONS, OVER 4 03/10/20 17 47626-ETGO SKIN LESIONS, OVER 4 12/15/19 24 17436-YIEW SKIN LESIONS, OVER 4 08/25/19 24 33066-OBUO SKIN LESIONS, OVER 4 02/23/20 24 97684-XFAJ SKIN LESIONS, OVER 4 02/11/20 28688-TCNR SKIN LESIONS, OVER 4 05/26/19 24 96281-FCWA SKIN LESIONS, OVER 4 10/29/19 68823-NSUA SKIN LESIONS, OVER 4 07/30/19 23 17560-RPFD SKIN LESIONS, OVER 4 04/26/20 22 75282-ZNWV SKIN LESIONS, OVER 4 01/19/20 22 49318-YWMU SKIN LESIONS, OVER 4 09/22/19 22 50620-FNJI SKIN LESIONS, OVER 4 06/18/19 22 94259-FOEH SKIN LESIONS, OVER 4 12/25/19 25 16853-GQDQ SKIN LESIONS, OVER 4 09/21/19 25 81962-JTBT SKIN LESIONS, 2 TO 4 09/10/19 17 76058-CSYK SKIN LESIONS, 2 TO 4 03/11/20 16 24813-MUSE SKIN LESIONS, 2 TO 4 06/16/19 16 16139, Z8751-ERHDK/INJECT, JOINT/BURSA 0 11/01/2024 Next Appt Details Provider Name:Loren Bui , 04/29/2025 03:00:00 PM, [address] [place], [address], Insurance Providers Payer Name Payer Address Payer Phone Subscriber Number Group Number Insured Name Patient Relationship to Insured Coverage Start Date Coverage End Date Medicare National [employer] [address] [place] [address] [id number] [employer] - patient is the insured 7 [employer] [address] [place] [address] [id number] [employer] Self - patient is the insured Medical (General) History Medical History History ICD Code diabetic high blood pressure measles mumps chicken pox Glaucoma Neuropathy Surgical History Surgery Date(Month/Year) disc surgery 18- 20 yrs ago bladder surgery Tumor 12/2020 toe surgery left 2023 Arthroplasty T1 08/29/2024 Hospitalization History Reason Date(Month/Year) [facility] elevated blood pressure 02/2017 myocardial infarction
== END 2024-12-31 16:41 | disposition home or self-care (01) ==
PROVIDERS: PCP Internal Medicine; Visit Provider Nurse Practitioner Family
DX: S41.151A Open bite of right upper arm, initial encounter (principal); W54.0XXA Bitten by dog, initial encounter

== ENCOUNTER → 2024-12-31 15:06 | Outpatient (BNVA) | payer MEDICARE, SELFPAY | PROVIDERS: PCP Internal Medicine; Visit Provider Nurse Practitioner Family | DX: S41.151A Open bite of right upper arm, initial encounter (principal); W54.0XXA Bitten by dog, initial encounter | CPT/HCPCS: 99212 ==

== ENCOUNTER 2025-01-09 13:39 | Outpatient (AMB) | payer MEDICARE, SELFPAY ==
[2025-01-09 13:55] VITALS: BP 106/60; PULSE 62; TEMP 36.3; O2SAT 97; BMI 29.9
--- NOTE | 2025-01-09 13:55 | MHC.OFFWIV ---
Intake Vital Signs 01/09/25 13:55 Height 5 ft 6 in Weight 185 lb BMI 29.9 BP 106/60 Blood Pressure Location Lt brachial Position Sitting Pulse 62 Pulse Source Pulse Oximeter Temp 97.4 F Temp Source Oral Pulse Oximetry (%) 97 Oxygen Delivery Method Room Air Intake Visit Reasons: EP Cellulitis on LT arm? Intake Note: pt is here for concern of swelling of on left arm, concerned about cellulitis. He was here 2 weeks ago for the same thing for his right forearm. Pharmacist told him to come to be checked out Allergies acetaminophen (From Tylenol-Codeine) Allergy (Mild, Verified 01/09/25 13:56) Hives codeine (From Tylenol-Codeine) Allergy (Mild, Verified 01/09/25 13:56) Hives Do you need a note to return to daycare/school/sports/work: No HPI HPI Comments History of Present Illness Details History of Present Illness - The patient is an 84-year-old male presenting with an insect bite and redness to the left arm. - The patient was bitten by a bug while trimming bushes, initially resembling a mosquito bite. - The bite has since become infected, with significant itchiness reported. - The patient applied hydrocortisone cream for itch relief, which was partially effective. - Previous treatment for a dog bite included antibiotic patches, which were effective until they ran out. - He has noticed that the area is more red and spreading. - He denies fever, chills, other rashes, CP, SOB, abd pain, n/v/d. Physical Exam General: Cooperative, healthy appearing, comfortable, no acute distress and well developed Orientation: Patient oriented x3 Respiratory: Normal respiratory effort and able to speak in complete sentences. Clear to auscultation bilaterally Cardiovascular: Regular rate and rhythm. Normal S1 and S2 Skin: Erythema and warmth noted on the left lower forearm. No induration noted. No streaking noted. No bleeding noted. Neuro: Sensation is intact on the UE. Extremities: Normal to inspection, no pain or limitations in arm and wrist movement. Hand sales expert home theater is intact. FROM of the wrist, elbow and fingers. Patient was informed and verbally consented to the use of an ambient scribe for clinic note documentation during this visit. [facility] Medical History (Updated 12/31/24 @ 16:27 by Earline K W Ndissi, PLUG STITCHER) Dog bite of arm Review of Systems Const All systems reviewed & are unremarkable except as noted in HPI and below Physical Exam Vital Signs: Last Vital Signs Temp 97.4 F 01/09/25 13:55 Pulse 62 01/09/25 13:55 BP 106/60 01/09/25 13:55 Pulse Ox 97 01/09/25 13:55 Oxygen Delivery Method Room Air 01/09/25 13:55 BMI result Body Mass Index 29.9 Assessment & Plan Assessment & Plan (1) Left arm cellulitis: Code(s): L03.114 - Cellulitis of left upper limb (2) Bug bite: Code(s): W57.XXXA - Bitten or stung by nonvenomous insect and other nonvenomous arthropods, initial encounter Qualifiers: Encounter type: initial encounter Qualified Code(s): W57.XXXA - Bitten or stung by nonvenomous insect and other nonvenomous arthropods, initial encounter Plan Most likely cellulitis after a bug bite Plan - Prescribe antibiotics to address the secondary infection from the insect bite. - Recommend the use of hydrocortisone cream for itch relief. - Suggest the application of heat or ice to the affected area as needed. - Advise the use of Tylenol or Motrin for pain management. - Follow up with PCP Medications: New cephalexin 500 mg PO Q6H 28 caps 0RF Coding Level of Care Code Est Pt Level 3 (26367) Diagnoses Left arm cellulitis L03.114 Bug bite, initial encounter W57.XXXA Encounter type: initial encounter
--- OUTSIDE RECORDS SUMMARY | 2025-01-09 14:34 | XMS_ITS | Encounter Summary ---
Author Organization [facility] Address [address] [place] [address] Phone Care Team Providers Care Naval Aircrewman Tactical Helicopter Name Role Phone Omar Encarnacion MD Primary Care Provider [phone] Reason for Referral * MRI/CAT Scan - Closed Specialty Diagnoses / Procedures Referred By Contac t Referred To Contact Radiology Diagnoses Low back pain, unspecified back pain laterality, unspecified chronicity, unspecified whether sciatica present Procedures MRI Lumbar Spine Rohan Liriano DO Phone: tel: fax: [email or web address] Referral ID Status Reason Start Date Expiration Date Visits Re quested Visits Authorized [id number] Closed 02/25/2021 02/25/2022 1 1 Encounter Details Date Type Department Care Team (Latest Contact Info) Description 02/25/2021 Transcribe Orders Virtual Department [address] [place] [address] Rohan Liriano DO [address] [place] [address] [email or web address] Low back pain, unspecified back pain laterality, [...] Description 03/01/2025 1:40 PM EDT Office Visit [facility] [address] [place] [address] [address] Floor, [address] [place] [address] Ad Harvey MD [address] [facility], [address] [place] [address] [email or web address] documented as of this encounter Results * [...] nerve roots. 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 5.At L5/S1, there is a left [...] present documented in this encounter Care Teams Naval Aircrewman Tactical Helicopter Relationship Specialty Start Date End Date Omar Encarnacion MD [address] [place] [address] PCP - General 03/10/17 documented as of this encounter Additional Source Comments The information contained in this document represents components of the legal health record. It is not the complete legal health record.[facility]
--- OUTSIDE RECORDS SUMMARY | 2025-01-09 14:35 | XMS_ITS | Patient Health Record ---
Author Organization [facility] Address [address] [place] [address] Care Team Providers Care Assistant Child Care Teacher Name Role Phone Alysha DU, Omar Primary Care Provider Loren Garcia Unavailable [phone] Zahira Liu Unavailable [phone] Allergies Allergen (clinical drug ingredient) Drug/Non Drug [...] Problem Status W/U Status Risk Notes Problem Other hammer toe(s) (acquired), right foot (M20.41) Active confirmed Response to treatment, Improvement Problem Acquired hammer toe of left foot ([id number] 3) Other hammer toe(s) (acquired), left foot (M20.42) Active confirmed Response to treatment, Improvement Problem Polyneuropathy due to type 2 diabetes mellitus (348679651) Type 2 diabetes mellitus with diabetic polyneuropathy (E11.42) Active confirmed Vital Signs Heart Rate 63 /min 11/01/2024 Blood pressure diastolic 60 mm Hg 12/24/2024 Height 5 ft 6.5 in in 12/24/2024 Blood pressure systolic 124 mm Hg 12/24/2024 Weight 180 lbs 12/24/2024 BMI 28.61 kg/m2 12/24/2024 Procedures Procedure Date Ordered Date Performed Result Body Sit e 97936- Debride <25 sq cm 02/02/2024 N/A 51982-AWIEPRL NAIL, 6 OR MORE 02/23/2024 N/A 83468-PGPPNVR SKIN/TISSUE 02/23/2024 N/A 99725-DFVX SKIN LESIONS, OVER 4 02/23/2024 N/A 90895-TSRXQIW SKIN/TISSUE 03/12/2024 N/A 43188 I&D ABSCESS- SIMPLE,SINGLE 05/24/2024 N/A 14946-PASEKXA SKIN/TISSUE 05/31/2024 N/A 79685-YUWOPQQ NAIL, 6 OR MORE 06/14/2024 N/A 60672-VTGJ SKIN LESIONS, OVER 4 06/14/2024 N/A 89288-EXXRQRZ NAIL, 6 OR MORE 09/20/2024 N/A 73336-HLEH SKIN LESIONS, OVER 4 09/20/2024 N/A 15681, Y7659-PJNAG/INJECT, JOINT/BURSA 11/01/2024 N/A 05014-AIFAYER NAIL, 6 OR MORE 12/24/2024 N/A 44698-Afwewvpl Plate 12/24/2024 N/A 83722-LFPJ SKIN LESIONS, OVER 4 12/24/2024 N/A Encounters Encounter Location Date Provider Diagnosis Surgery [facility] ([facility]/[address] [address] 08/29/2024 Zahira Liu [facility] [address] [address] 01/16/2024 Loren Black Type 2 diabetes mellitus with diabetic polyneuropathy E11.42 ; Neuropathic ulcer of left foot, 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.521 and Cellulitis of left toe L03.032 [facility] [address] [address] 02/02/2024 Loren Black Type 2 diabetes mellitus with diabetic polyneuropathy E11.42 and Neuropathic ulcer of left foot, 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.[address] [address] 02/23/2024 Loren Black Type 2 diabetes mellitus with diabetic polyneuropathy E11.42 ; Tinea unguium B35.1 and Skin ulcer of toe of left foot with fat layer exposed L97.[address] [address] 03/12/2024 Loren Black Type 2 diabetes mellitus with diabetic polyneuropathy E11.42 and Skin ulcer of toe of left foot with fat layer exposed L97.[address] [address] 05/10/2024 Loren Black Type 2 diabetes mellitus with diabetic polyneuropathy E11.42 ; Skin ulcer of toe of left foot with fat layer exposed L97.522 ; Other hammer toe(s) (acquired), left foot M20.42 and Hallux valgus of left foot M20.[address] [address] 05/24/2024 Loren Black Cellulitis of foot, left L03.116 ; Abscess of left foot L02.612 ; 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 ; Type 2 diabetes mellitus with diabetic polyneuropathy E11.42 and Skin ulcer of toe of left foot with necrosis of bone L97.[address] [address] 05/31/2024 Loren Black Cellulitis of foot, left L03.116 ; Type 2 diabetes mellitus with diabetic polyneuropathy E11.42 and Skin ulcer of toe of left foot with fat layer exposed L97.[address] [address] 06/06/2024 Zahira Liu Type 2 diabetes mellitus with diabetic polyneuropathy E11.42 ; Hammertoe of left foot M20.42 and Skin ulcer of toe of left foot with fat layer exposed L97.[address] [address] 06/14/2024 Loren Black Other hammer toe(s) (acquired), right foot M20.41 ; Other hammer toe(s) (acquired), left foot M20.42 ; Tinea unguium B35.1 ; Type 2 diabetes mellitus with diabetic polyneuropathy E11.42 and Neuropathic ulcer of left foot, 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.[address] [address] 07/30/2024 Loren Black Type 2 diabetes mellitus with diabetic polyneuropathy E11.42 and Skin ulcer of toe of left foot with fat layer exposed L97.[address] [address] 08/27/2024 Zahira Liu Type 2 diabetes mellitus with diabetic polyneuropathy E11.42 ; Hammertoe of left foot M20.42 and Skin ulcer of toe of left foot with fat layer exposed L97.[address] [address] 09/03/2024 Zahira Liu Type 2 diabetes mellitus with diabetic polyneuropathy E11.42 ; Hammertoe of left foot M20.42 and Post-operative state Z98.[address] [address] 09/10/2024 Zahira Liu Type 2 diabetes mellitus with diabetic polyneuropathy E11.42 ; Hammertoe of left foot M20.42 and Post-operative state Z98.[address] [address] 09/20/2024 Loren Black Type 2 diabetes mellitus with diabetic polyneuropathy E11.42 and Tinea unguium B35.[address] [address] 09/24/2024 Zahira Liu Type 2 diabetes mellitus with diabetic polyneuropathy E11.42 ; Hammertoe of left foot M20.42 and Post-operative state Z98.[address] [address] 11/01/2024 Zahira Liu Bursitis of left foot 726.[address] [place] [address] 12/24/2024 Loren Black Type 2 diabetes mellitus with diabetic polyneuropathy E11.42 ; Tinea unguium B35.1 ; Ingrown nail L60.0 ; Other hammer toe(s) (acquired), right foot M20.41 and Other hammer toe(s) (acquired), left foot M20.42 [facility] [address] [place] [address] 01/16/2024 Loren Black [facility] [address] [place] [address] 01/16/2024 Loren Black [facility] [address] [place] [address] 03/12/2024 Loren Black [facility] [address] [place] [address] 03/29/2024 Loren Black [facility] [address] [place] [address] 05/10/2024 Loren Black [facility] [address] [place] [address] 05/24/2024 Loren Black [facility] [address] [place] [address] 05/24/2024 Loren Black [facility] [address] [place] [address] 05/28/2024 Loren Black [facility] [address] [place] [address] 05/31/2024 Loren Black [facility] [address] [place] [address] 05/31/2024 Loren Black [facility] [address] [place] [address] 05/31/2024 Loren Black [facility] [address] [place] [address] 06/14/2024 [facility] [address] [place] [address] 07/03/2024 Olren Black [facility] [address] [place] [address] 07/05/2024 Lorenlou Bui [facility] [address] [place] [address] 08/30/2024 Lorenjinny Bui [facility] [address] [address] 09/19/2024 Lorenlou Bui [facility] [address] [address] 09/26/2024 Lorenlou Bui [facility] [address] [address] 10/29/2024 Loren Bui Assessments Encounter Date Diagnosis (ICD Code) Assessment Notes Treatment Notes Treatment Clinical Notes Section Notes 02/02/2024 Type 2 diabetes mellitus with diabetic [...] - L03.032) Response to treatment - Improvement 05/10/2024 Other hammer toe(s) (acquired), left foot [...] X ray : Foot, right 3V 02/07/2012 70266-LJWBRYQ NAIL, 6 OR MORE 09/09/2016 84006-WBCMCPW NAIL, 6 OR MORE 06/17/2014 68324-MUGMPXU NAIL, 6 OR MORE 06/16/2015 88574-PZHHATT NAIL, 6 OR MORE 03/11/2016 68216-YOPYENX NAIL, 6 OR MORE 03/10/2017 63984-GLQIBFJ NAIL, 6 OR MORE 06/09/2017 86879-QFJNJXH NAIL, 6 OR MORE 09/19/2017 19275-VUWFWOG NAIL, 6 OR MORE 03/20/2018 58583-JQHYWCB NAIL, 6 OR MORE 11/30/2018 66558-LWLCEUU NAIL, 6 OR MORE 04/09/2019 59727-NAZMBNS NAIL, 6 OR MORE 07/05/2019 68318-XVKMASS NAIL, 6 OR MORE 10/04/2019 84728-EHJJEIJ NAIL, 6 OR MORE 01/03/2020 44074-FEOALNG NAIL, 6 OR MORE 04/10/2020 16327-TPUUFCF NAIL, 6 OR MORE 07/10/2020 49433-CMWGNYT NAIL, 6 OR MORE 10/09/2020 45440-IVVECQM NAIL, 6 OR MORE 06/14/2024 51196-GIIZRAD NAIL, 6 OR MORE 12/15/2023 87743-WJDEQRY NAIL, 6 OR MORE 02/23/2024 70835-NIKQNQQ NAIL, 6 OR MORE 05/26/2023 86356-GNXNQXX NAIL, 6 OR MORE 08/25/2023 52966-CIVYAGF NAIL, 6 OR MORE 01/08/2021 83630-VXXKHEQ NAIL, 6 OR MORE 06/18/2021 22874-IHFTTWQ NAIL, 6 OR MORE 09/21/2021 95717-YYWSDJW NAIL, 6 OR MORE 01/18/2022 41199-GIDYBYG NAIL, 6 OR MORE 04/26/2022 72487-OXAQBBX NAIL, 6 OR MORE 07/29/2022 72257-DUGVVMQ NAIL, 6 OR MORE 10/28/2022 02614-CKLXGEG NAIL, 6 OR MORE 02/10/2023 74413-KYBVOVJ NAIL, 6 OR MORE 09/20/2024 27791-ONBLUJB NAIL, 6 OR MORE 12/24/2024 21463-Fexhzuul Plate 12/24/2024 04982- Debride <25 sq cm 02/10/2023 15428- Debride <25 sq cm 06/30/2023 78648- Debride <25 sq cm 01/09/2024 49191- Debride <25 sq cm 02/02/2024 27976-YEUTYJP SKIN/TISSUE 02/23/2024 43744-THEPAQD SKIN/TISSUE 12/15/2023 25734-HDGMFOR SKIN/TISSUE 03/12/2024 01236-XJOJGKG SKIN/TISSUE 12/26/2023 01862-LTIQBAK SKIN/TISSUE 05/31/2024 07069 I&D ABSCESS- SIMPLE,SINGLE 025 , J0702- INJECT or DRAIN, JOINT/BUR SA 09/19/201771992, J0702- INJECT or DRAIN, JOINT/BUR SA 07/14/2017 64253-HCOX SKIN LESIONS, OVER 4 09/20/19 18 70644-OEAL SKIN LESIONS, OVER 4 06/09/19 18 24565-XBGP SKIN LESIONS, OVER 4 03/20/20 18 12044-GXON SKIN LESIONS, OVER 4 12/01/19 19 47647-JIYZ SKIN LESIONS, OVER 4 09/10/19 17 99396-BYCC SKIN LESIONS, OVER 4 03/11/20 16 13255-BZDG SKIN LESIONS, OVER 4 01/09/20 21 57336-UOER SKIN LESIONS, OVER 4 10/10/19 21 03583-UZUH SKIN LESIONS, OVER 4 07/10/19 21 03551-NOVZ SKIN LESIONS, OVER 4 04/10/20 20 28066-TNTH SKIN LESIONS, OVER 4 01/03/20 20 74233-CFLQ SKIN LESIONS, OVER 4 10/04/19 20 87571-VQXS SKIN LESIONS, OVER 4 07/05/19 20 39190-LIHP SKIN LESIONS, OVER 4 04/09/20 19 05625-LWWB SKIN LESIONS, OVER 4 06/14/19 62719-ZXNP SKIN LESIONS, OVER 4 03/10/20 17 54139-JSJH SKIN LESIONS, OVER 4 12/15/19 82069-VUPK SKIN LESIONS, OVER 4 08/25/19 25227-MVPD SKIN LESIONS, OVER 4 02/23/20 19164-VPHC SKIN LESIONS, OVER 4 02/11/20 67536-GKCY SKIN LESIONS, OVER 4 05/26/19 76169-VWZO SKIN LESIONS, OVER 4 10/29/19 20127-APWK SKIN LESIONS, OVER 4 07/30/19 33537-UDEX SKIN LESIONS, OVER 4 04/26/20 86313-SQHG SKIN LESIONS, OVER 4 01/19/20 42380-MFZZ SKIN LESIONS, OVER 4 09/22/19 87445-IOPF SKIN LESIONS, OVER 4 06/18/19 48288-SCDE SKIN LESIONS, OVER 4 12/25/19 59803-QXUS SKIN LESIONS, OVER 4 09/21/19 41569-YVMO SKIN LESIONS, 2 TO 4 09/10/19 17 37367-SUMZ SKIN LESIONS, 2 TO 4 03/11/20 16 54757-JHLQ SKIN LESIONS, 2 TO 4 06/16/19 16 85486, J9010-UHEBD/INJECT, JOINT/BURSA 0 11/01/2024 Next Appt Details Provider Name:Loren Bui , 04/29/2025 03:00:00 PM, [address] [place], [address], Insurance Providers Payer Name Payer Address Payer Phone Subscriber Number Group Number Insured Name Patient Relationship to Insured Coverage Start Date Coverage End Date Medicare National Govt Sv[employer] [address] [place] [address] [id number] [employer] Self - patient is the insured 7 [employer] Blue [employer] [address] [place] [address] [phone] [id number] [employer] Self - patient is the [...]
--- OUTSIDE RECORDS SUMMARY | 2025-01-09 14:35 | XMS_ITS | Patient Health Record ---
Author Organization [facility] Address [address] [place] [address] Care Team Providers Care Meat Process Worker Name Role Phone Omar Encarnacion MD Primary Care Provider Augustin Dennison [phone] Allergies Allergen (clinical drug ingredient) Drug/Non Drug [...] Problem Status W/U Status Risk Notes Problem 811228404 Encounter for screening for malignant neoplasm of colon (Z12.11) Active confirmed Problem 838962444 History of adenomatous polyp of colon (Z86.010) Active confirmed Problem Screening for malignant neoplasm of rectum (958201908) Encounter for screening for malignant neoplasm of rectum (Z12.12) Active confirmed Problem 915114226 Gastroesophageal reflux disease without esophagitis (K21.9) Active confirmed Problem 539124066 Family history o f colon cancer (Z80.0) Active confirmed Plan Of Treatment Pending Test Test Name Order Date GI BIOPSY 06/03/2016 Future Test Test Name Order Date COLONOSCOPY 09/24/2015 Insurance Providers Payer Name Payer Address Payer Phone Subscriber Number Group Number Insured Name Patient Relationship to Insured Coverage Start Date Coverage End Date MEDICARE OF [place] [address] [place] [address] [id number] KESHA MARTINEZ Self - patient is the insured [employer] [address] [place] [address] [id number] KESHA MARTINEZ Self - patient is the insured Medical (General) History Medical History History ICD Code Colonoscopy 1999, 2005, and 02/2011--tubular adenoma removed in 2005--the other exams were negative aside from some diverticulosis NIDDM HTN Denies CVA,Lung disease,renal disease RI 09/30/2014---1 stent placed--Dr. Marin er GERD-EGD in 02/2011--small H H, no Trent's nor esophagitis, mild gastritis--no H.pylori Hyperlipidemia Hypothyroidism Neuropathy BPH Surgical History Surgery Date(Month/Year) Back surgery Cyst removal--back and ear Tonsillectomy
--- OUTSIDE RECORDS SUMMARY | 2025-01-09 14:35 | XMS_ITS | Clinical Summary ---
Author Organization [address] [facility] Address [address] [place] [address] Phone Care Team Providers Care Equipment Processor Name Role Phone Omar Encarnacion MD Primary Care Provider [phone] Social History Tobacco Use Types Packs/Day Years [...] Phone Billing Address Personal/Family Self 1940 [address] [facility] [place] [address] MEDICARE [facility] Care Teams Equipment Processor Relationship Specialty Start Date End Date Omar Encarnacion MD [address] [place] [id number] PCP - General Internal Medicine 05/24/24
== END 2025-01-09 15:20 | disposition home or self-care (01) ==
PROVIDERS: PCP Internal Medicine; Visit Provider Physician Assistant Medical
DX: L03.114 Cellulitis of left upper limb (principal); W57.XXXA Bitten or stung by nonvenomous insect and other nonvenomous arthropods, initial encounter

== ENCOUNTER → 2025-01-09 13:39 | Outpatient (BNVA) | payer MEDICARE, SELFPAY | PROVIDERS: PCP Internal Medicine; Visit Provider Physician Assistant Medical | DX: L03.114 Cellulitis of left upper limb (principal); S50.861A Insect bite (nonvenomous) of right forearm, initial encounter; W57.XXXA Bitten or stung by nonvenomous insect and other nonvenomous arthropods, initial encounter | CPT/HCPCS: 99212 ==